=== PATIENT | female | born 1950 | race Two or more races ===

== ENCOUNTER 2017-10-03 08:47 | Day surgery (SDC) | payer OTHER ==
[~2017-10-03 08:47] MED LIST: ALDACTONE50 MG PO; COREG PO; COZAAR50 MG PO; ELIQUIS5 MG PO; SYNTHROID100 MCG PO
== END 2017-10-03 14:05 | disposition home or self-care (01) ==
LOC: AMB-ENDOS 08:47
DX: K63.5 Polyp of colon (principal); K57.32 Diverticulitis of large intestine without perforation or abscess without bleeding; K64.2 Third degree hemorrhoids; Z12.11 Encounter for screening for malignant neoplasm of colon